=== PATIENT | female | born 1955 ===

== ENCOUNTER 2021-12-25 09:45 | Day surgery (SDC) | payer OTHER ==
[~2021-12-25 09:45] MED LIST: CELEXA20 MG PO; COZAAR25 MG PO; LIPITOR20 MG PO; METFORMIN HCL1000 M2 PO; SYNTHROID50 MCG PO
== END 2021-12-25 19:30 | disposition home or self-care (01) ==
LOC: CIR.AMB 09:45
PROVIDERS: ATTEND Orthopaedic Surgery
DX: S53.32XA Traumatic rupture of left ulnar collateral ligament, initial encounter (principal); S52.122A Displaced fracture of head of left radius, initial encounter for closed fracture; S52.022A Displaced fracture of olecranon process without intraarticular extension of left ulna, initial encounter for closed fracture; I10 Essential (primary) hypertension; E11.9 Type 2 diabetes mellitus without complications; E03.9 Hypothyroidism, unspecified; F32.A Depression, unspecified; Z79.84 Long term (current) use of oral hypoglycemic drugs
CPT/HCPCS: 24343; 24666; 24685; L8699